=== PATIENT | male | born 1985 | race Caucasian/White ===

== ENCOUNTER → 2020-08-18 | Outpatient (CLI) | payer OTHER ==
--- NOTE | 2020-08-18 15:26 | XR ---
Left ankle and left leg HISTORY: Trauma last week and pain 2 views of the left leg and 3 views the left ankle There is an overlying artifact. Bone mineralization, joint spaces and alignment are maintained. Soft tissue swelling noted at the left ankle. IMPRESSION: No acute fracture or dislocation is evident.
== END | disposition home or self-care (01) ==
LOC: RADXRMAIN 12:32
PROVIDERS: ATTEND Emergency Medicine
DX: S99.912A Unspecified injury of left ankle, initial encounter (principal)

== ENCOUNTER → 2020-08-25 | Outpatient (CLI) | payer OTHER ==
--- NOTE | 2020-08-25 17:57 | XR ---
Result: History: Pain. Comparison: None available. Technique: 3 views of the left ankle. Findings: No acute fracture or dislocation is seen. The visualized osseous structures are in anatomic alignmen t. The talar dome is intact and the ankle mortise is congruent. The joint spaces are preserved. The re is soft tissue edema overlying the lateral malleolus. Impression: Soft tissue edema without acute osseous abnormality.
== END | disposition home or self-care (01) ==
LOC: RADXRMAIN 17:11
PROVIDERS: ATTEND Emergency Medicine
DX: R60.9 Edema, unspecified (principal)

== ENCOUNTER 2022-12-31 11:02 | Emergency (ER) | payer BC ==
[2022-12-31 11:28] VITALS: TEMP 97.8
[2022-12-31] MEDS ORDERED: SODIUM CHLORIDE 0.9% 1,000 ML IV STA (11:41)
[2022-12-31 12:00] LABS: Basophils % (A) 0 %; Eosinophils # (A) 0.4 k/uL (0-0.7); Eosinophils % (A) 4 %; HCT 41.3 % (39.0-53.0); HGB 14.3 gm/dL (13.0-17.5); Lymphocytes # (A) 1.5 k/uL (1.0-4.8); Lymphocytes % (A) 16 %; MCH 31.5 pg (25.0-35.0); MCHC 34.6 g/dL (31.0-37.0); MCV 90.8 fL (80.0-100.0); Mean Platelet Volume 8.7; Monocytes # (A) 0.5 k/uL (0-1.0); Monocytes % (A) 5 %; Neutrophils # (A) 6.8 k/uL (1.3-7.7); Neutrophils % (A) 73 %; Platelet Count 195 k/uL (150-450); RBC 4.55 m/uL (4.30-5.90); WBC 9.4 k/uL (3.8-10.6)
[2022-12-31] MEDS ORDERED: PROCHLORPERAZINE INJ 10 MG/2 ML VIAL IVP STA (12:00)
[2022-12-31] MEDS ORDERED: FAMOTIDINE 20 MG/2 ML VIAL IV STA (12:00)
[2022-12-31 12:19] LABS: ALT 36 U/L (4-49); African American GFR (CKD) >90 (>60 ml/min/1.73 sqM); Albumin 4.6 g/dL (3.5-5.0); Anion Gap 11 mmol/L; Blood Urea Nitrogen 13 mg/dL (9-20); Calcium 9.2 mg/dL (8.4-10.2); Carbon Dioxide 24 mmol/L (22-30); Chloride 107 mmol/L (98-107); Glucose 93 mg/dL (74-99); Non-African American GFR(CKD) >90 (>60 ml/min/1.73 sqM); Sodium 142 mmol/L (137-145); Total Protein 7.6 g/dL (6.3-8.2)
[2022-12-31 12:21] LABS: AST 35 U/L (17-59)
[2022-12-31 12:22] LABS: Alkaline Phosphatase 43 U/L (38-126)
[2022-12-31 12:35] LABS: INR 1.2 (<1.2); Partial Thromboplastin Time 22.3 sec (22.0-30.0); Prothrombin Time 12.5 sec (10.0-12.5)
--- NOTE | 2022-12-31 12:38 | ED ---
Syncope HPI - General Chief Complaint: Syncope Stated Complaint: Syncope Time Seen by Provider: 12/31/22 11:37 Source: patient, EMS, RN notes reviewed Mode of arrival: EMS Limitations: no limitations - History of Present Illness Initial Comments: This is a 37-year-old male who presents to the emergency department for a syncopal episode. Patient states that he was presenting a flag at a today, as the was a . This was not anyone he knew personally. While he was in the process of doing this, states that he started to feel very dizzy and unwell. He felt like he was losing vision in his eyes and was concerned that he was going to pass out. He went to alert other individuals and they were able to sit him down. He was told that he was unconscious for about 5 minutes. It is unclear if there was any shaking, as the patient was getting mixed opinions on this. He denies any history of seizures. There was no postictal period. He has only had a syncopal episode one other time in the past, and that was when he was severely dehydrated after walking for about 12 miles in training. States that he currently feels nauseous, but is otherwise doing okay. He was given Zofran by EMS, which was not helpful. MD Complaint: loss of consciousness - Related Data Home Medications Medication Instructions Recorded Confirmed [id number] 2 tab PO Q6H PRN 12/31/22 12/31/22 [Excedrin] Eszopiclone [Lunesta] 2 mg PO HS PRN 12/31/22 12/31/22 Allergies Allergy/AdvReac Type Severity Reaction Status Date / Time No Known Allergies Allergy Verified 12/31/22 13:18 Review of Systems ROS Statement: Those systems with pertinent positive or pertinent negative responses have been documented in the HPI. ROS Other: All systems not noted in ROS Statement are negative. Past Medical History Past Medical History: No Reported History History of Any Multi-Drug Resistant Organisms: None Reported Past Surgical History: No Surgical Hx Reported Past Psychological History: PTSD Smoking Status: Former smoker Past Alcohol Use History: Occasional Past Drug Use History: None Reported General Exam Limitations: no limitations General appearance: alert, in no apparent distress Head exam: Present: atraumatic, normocephalic, normal inspection Eye exam: Present: normal appearance, PERRL, EOMI. Absent: scleral icterus, conjunctival injection, periorbital swelling Respiratory exam: Present: normal lung sounds bilaterally. Absent: respiratory distress, wheezes, rales, rhonchi, stridor Cardiovascular Exam: Present: regular rate, normal rhythm, normal heart sounds. Absent: systolic murmur, diastolic murmur, rubs, gallop, clicks Neurological exam: Present: alert, oriented X3, CN II-XII intact Psychiatric exam: Present: normal affect, normal mood Skin exam: Present: warm, dry, intact, normal color. Absent: rash Course Vital Signs 12/31/22 12/31/22 12/31/22 11:05 11:17 11:30 Temperature 97.8 F Pulse Rate 56 L 53 L Respiratory 18 18 Rate Blood Pressure 123/66 123/66 O2 Sat by Pulse 100 100 Oximetry 12/31/22 12/31/22 12/31/22 12:00 12:30 13:19 Temperature Pulse Rate 58 L 70 Respiratory 16 18 Rate Blood Pressure 116/73 109/94 116/76 O2 Sat by Pulse 100 99 Oximetry Medical Decision Making - Medical Decision Making This is a 37-year-old male who presents to the emergency department for a syncopal episode. Was pt. sent in by a medical professional or institution? @ -No Did you speak to anyone other than the patient for history? @ -No Did you review nursing and triage notes? @ -Yes, and I agree, it is accurate with regards to the patient's symptoms. Were old charts reviewed? @ -No Differential Diagnosis? @ -Differential Syncope: Valvular disease, hypertrophic cardiomyopathy, pulmonary embolism, tamponade, tachycardia, bradycardia, PR, hypovolemia, hemorrhage, dissection, anemia, intracranial hemorrhage, seizure, hypoglycemia, carbon monoxide poisoning, this is not meant to be an all-inclusive list. EKG interpreted by me (3pts min.)? @ -EKG interpreted by me demonstrating the following: Sinus bradycardia. Ventricular rate 51 bpm, AZ interval 159 ms, QRS duration 88 ms, QTC 389 ms. X-rays interpreted by me (1pt min.)? @ -Not obtained CT interpreted by me (1pt min.)? @ -Computed tomography scan of the brain obtained. My interpretation identifies no evidence of an acute intracranial hemorrhage or mass effect. U/S interpreted by me (1pt. min.)? @ -Not obtained What testing was considered but not performed? (CT, X-rays, U/S, labs)? Why? @ -None What meds were considered but not given? Why? @ -None Did you discuss the management of the patient with other professionals? @ -No Did you reconcile home meds? @ -No Was smoking cessation discussed for >3mins.? @ -No Was critical care preformed (if so, how long)? @ -No Were there social determinants of health that impacted care today? How? (Homelessness, low income, unemployed, alcoholism, drug addiction, transportation, low edu. Level, literacy, decrease access to med. care, half-way, rehab)? @ -No Was there de-escalation of care discussed even if they declined? (Discuss DNR or withdrawal of care, Hospice)? @ -No What co-morbidities impacted this encounter? (DM, HTN, Smoking, COPD, CAD, Cancer, CVA, Hep., AIDS, mental health diagnosis, sleep apnea, morbid obesity)? @ -None Was patient admitted / discharged? @ -Discharged. Lab work obtained and found to be nonactionable. Given that this was a new event without any clear cause and potential seizure activity, we did obtain a computed tomography scan of the brain. This also revealed no acute process. Patient was given a liter bolus of IV fluids, Compazine, and famotidine, with improvement in symptoms. At that time he felt comfortable with discharge home. Advised to have close follow-up with his primary care provider for reevaluation and discussion of any additional testing if necessary. Patient discharged home in stable condition. Undiagnosed new problem with uncertain prognosis? @ -None Drug Therapy requiring intensive monitoring for toxicity (Heparin, Nitro, Insulin, Cardizem)? @ -None Were any procedures done? @ -None Diagnosis/symptom? @ -Syncope Acute, or Chronic, or Acute on Chronic? @ -Acute Uncomplicated (without systemic symptoms) or Complicated (systemic symptoms)? @ -Uncomplicated Side effects of treatment? @ -None Exacerbation, Progression, or Severe Exacerbation] @ -Not applicable Poses a threat to life or bodily function? @ -Unclear Return precautions reviewed in depth, the patient is instructed to return to the emergency department with any new, worsening, or concerning symptoms. Patient verbalized understanding. This case was discussed in detail with the attending ED physician, Dr. Burton. Presentation, findings, and treatment plan discussed in detail as well. - Lab Data Result diagrams: 12/31/22 11:44 12/31/22 11:44 Lab Results 12/31/22 12/31/22 12/31/22 Range/Units 11:44 11:44 11:44 WBC 9.4 (3.8-10.6) k/uL RBC 4.55 (4.30-5.90) m/uL Hgb 14.3 (13.0-17.5) gm/dL Hct 41.3 (39.0-53.0) % MCV 90.8 (80.0-100.0) fL MCH 31.5 (25.0-35.0) pg MCHC 34.6 (31.0-37.0) g/dL RDW 12.0 (11.5-15.5) % Plt Count 195 (150-450) k/uL MPV 8.7 Neutrophils % 73 % Lymphocytes % 16 % Monocytes % 5 % Eosinophils % 4 % Basophils % 0 % Neutrophils # 6.8 (1.3-7.7) k/uL Lymphocytes # 1.5 (1.0-4.8) k/uL Monocytes # 0.5 (0-1.0) k/uL Eosinophils # 0.4 (0-0.7) k/uL Basophils # 0.0 (0-0.2) k/uL PT 12.5 (10.0-12.5) sec INR 1.2 H (<1.2) APTT 22.3 (22.0-30.0) sec Sodium 142 (137-145) mmol/L Potassium 5.0 (3.5-5.1) mmol/L Chloride 107 (98-107) mmol/L Carbon Dioxide 24 (22-30) mmol/L Anion Gap 11 mmol/L BUN 13 (9-20) mg/dL Creatinine 0.94 (0.66-1.25) mg/dL Est GFR (CKD-EPI)AfAm >90 (>60 ml/min/1.73 sqM) Est GFR (CKD-EPI)NonAf >90 (>60 ml/min/1.73 sqM) Glucose 93 (74-99) mg/dL Calcium 9.2 (8.4-10.2) mg/dL Total Bilirubin 1.0 (0.2-1.3) mg/dL AST 35 (17-59) U/L ALT 36 (4-49) U/L Alkaline Phosphatase 43 (38-126) U/L Troponin I (0.000-0.034) ng/mL Total Protein 7.6 (6.3-8.2) g/dL Albumin 4.6 (3.5-5.0) g/dL 12/31/22 Range/Units 11:44 WBC (3.8-10.6) k/uL RBC (4.30-5.90) m/uL Hgb (13.0-17.5) gm/dL Hct (39.0-53.0) % MCV (80.0-100.0) fL MCH (25.0-35.0) pg MCHC (31.0-37.0) g/dL RDW (11.5-15.5) % Plt Count (150-450) k/uL MPV Neutrophils % % Lymphocytes % % Monocytes % % Eosinophils % % Basophils % % Neutrophils # (1.3-7.7) k/uL Lymphocytes # (1.0-4.8) k/uL Monocytes # (0-1.0) k/uL Eosinophils # (0-0.7) k/uL Basophils # (0-0.2) k/uL PT (10.0-12.5) sec INR (<1.2) APTT (22.0-30.0) sec Sodium (137-145) mmol/L Potassium (3.5-5.1) mmol/L Chloride (98-107) mmol/L Carbon Dioxide (22-30) mmol/L Anion Gap mmol/L BUN (9-20) mg/dL Creatinine (0.66-1.25) mg/dL Est GFR (CKD-EPI)AfAm (>60 ml/min/1.73 sqM) Est GFR (CKD-EPI)NonAf (>60 ml/min/1.73 sqM) Glucose (74-99) mg/dL Calcium (8.4-10.2) mg/dL Total Bilirubin (0.2-1.3) mg/dL AST (17-59) U/L ALT (4-49) U/L Alkaline Phosphatase (38-126) U/L Troponin I <0.012 (0.000-0.034) ng/mL Total Protein (6.3-8.2) g/dL Albumin (3.5-5.0) g/dL - Radiology Data Radiology results: report reviewed, image reviewed Disposition Clinical Impression: Syncope Disposition: HOME SELF-CARE Instructions (If sedation given, give patient instructions): Syncope (ED) Additional Instructions: Return to the emergency department with any new, worsening, or concerning symptoms. Follow up with your primary care provider in 1-2 days. Is patient prescribed a controlled substance at d/c from ED?: No Referrals: None,Stated [Primary Care Provider] - 1-2 days
--- NOTE | 2022-12-31 12:42 | CT ---
EXAMINATION TYPE: CT brain wo con DATE OF EXAM: 12/31/2022 COMPARISON: INDICATION: syncope, visual changes DLP: 1054.2 mGycm, Automated exposure control for dose reduction was used. CONTRAST: None CT of the brain is performed utilizing 3 mm thick sections through the posterior fossa and 3 mm thick sections through the remaining calvarium. Study is performed within 24 hours of arrival to the hosp [facility]. No abnormal hyperdensity is present to suggest an acute intracranial hemorrhage. No mass lesion is evident. No acute infarcts are evident. Ventricles and sulci are appropriate for the patient age. Mucosal thickening is seen anterior and mid ethmoid air cells. Frontal sinuses may have minimal opaci fication on the right. Mucosal thickenings through the sphenoid sinuses. Mild mucosal thickening maxi llary sinuses. Mastoid air cells are clear. IMPRESSION: 1. No acute intracranial process. Follow-up MRI can be performed as clinically indicated. 2 Clinical consideration for ionic pansinusitis with
[2022-12-31] MEDS ORDERED: ONDANSETRON 4 MG ODT STARTER PACK 2 TAB BTL PO STA (13:11)
[2022-12-31 13:23] VITALS: BP 116/76; PULSE 70; RESP 18
== END 2022-12-31 13:20 | disposition home or self-care (01) ==
LOC: EC 11:02
DX: R55 Syncope and collapse (principal); Z87.891 Personal history of nicotine dependence
CPT/HCPCS: 36415; 93005; 80053; 84484; 85025; 85610; 85730; 70450; 99285; 96374; 96375; 96361; J0780; J3490; S0119

== ENCOUNTER → 2023-03-01 | Outpatient (CLI) | payer BC ==
[2023-03-01 15:09] LABS: NT-Pro-B-Type Natriuretic Pept 61 pg/mL
[2023-03-01 20:31] LABS: BUN/Creat Ratio 13.78 Ratio (12.00-20.00); Blood Urea Nitrogen 12.4 mg/dL (9.0-27.0); Calcium 9.5 mg/dL (8.7-10.3); Carbon Dioxide 22.6 mmol/L (21.6-31.8); Chloride 107 mmol/L (96-109); Chol/HDL Ratio 3.43 Ratio; Glucose 86 mg/dL (70-110); LDL Cholesterol,Calculated 101.9 mg/dL (0.0-131.0); Magnesium 2.1 mg/dL (1.5-2.4); Potassium 4.7 mmol/L (3.5-5.5); Sodium 143 mmol/L (135-145); VLDL Calculation 18.46 mg/dL (5.00-40.00)
== END | disposition home or self-care (01) ==
LOC: LABWHC1 13:39
PROVIDERS: ATTEND Student in an Organized Health Care Education/Training Program
DX: I49.3 Ventricular premature depolarization (principal); E78.5 Hyperlipidemia, unspecified; E03.9 Hypothyroidism, unspecified; N18.9 Chronic kidney disease, unspecified; E11.22 Type 2 diabetes mellitus with diabetic chronic kidney disease
CPT/HCPCS: 36415; 80048; 80061; 83036; 83735; 83880; 84443

== ENCOUNTER → 2024-09-24 | Outpatient (CLI) | payer BC ==
--- NOTE | 2024-09-24 15:23 | XR ---
EXAMINATION TYPE: XR lumbosacral spine min 4V DATE OF EXAM: 09/24/2024 3:12 PM INDICATION: Patient age:Male; 39 years old; Reason for study: [id number] DDD; [facility]. pain COMPARISON: None TECHNIQUE: Frontal, lateral , bilateral oblique and coned in L5-S1 lateral views of the spine. FINDINGS: There are 5 lumbar type vertebral bodies identified. Anterior pelvic tilt. No evidence of a ny acute osseous pathology. No evidence of loss of vertebral body height is seen. There is normal al ignment of the lumbar vertebral bodies. No significant joint space narrowing. Small anterior osteophy tosis at L3-L4. IMPRESSION: 1. No acute process. 2. Mild degenerative disc disease at L3-L4. [facility], , 09/24/2024 3:21 PM
== END | disposition home or self-care (01) ==
LOC: RADXRYALE 15:01
PROVIDERS: ATTEND Physician Assistant
DX: M51.362 Other intervertebral disc degeneration, lumbar region with discogenic back pain and lower extremity pain (principal)
CPT/HCPCS: 72110